=== PATIENT | male | born 1990 | race Caucasian/White ===

== ENCOUNTER 2017-02-15 19:59 | Emergency (ER) | payer SELFPAY ==
[~2017-02-15] VITALS: Ht 177.8 cm; Wt 70.2 kg
[2017-02-15 20:15] VITALS: Ht 177.8 cm; Wt 70.2 kg
--- NOTE | 2017-02-15 21:43 | EMERGENCY ROOM VISIT NOTE ---
History Report prepared by Chelita: Skylar Palmer Under the Supervision of: Dr. Randy Roberts D.O. First contact with patient: 21:34 Chief Complaint: FEVER Stated Complaint: LUMP UNDER L JAW,CHEST CONGESTION,FEVER,CHESTTIGHT History of Present Illness The patient is a 26 year old male who presents to the Emergency Room with complaints of worsening illness starting 5 days ago. The patient has been sick with cough, cold, and chest congestion. He is coughing up a brown/yellow mucous. The patient also complains of a lump under his left jaw. He has a history of bronchitis and pneumonia. He is a smoker. He denies any previous surgeries. Source of History: patient Onset: 5 days ago Position: other (global) Quality: other (illness) Timing: worsening Associated Symptoms: + cough Note: Pt reports cold, chest congestion, lump under left jaw. Review of Systems See HPI for pertinent positives and negatives. A total of ten systems were reviewed and were otherwise negative. Past Medical & Surgical Medical Problems: (1) Bronchitis (2) Dental abscess (3) Pneumonia Family History FH: peptic ulcer disease Social History Smoking Status: Current Every Day Smoker Alcohol Use: occasionally Drug Use: none Marital Status: in relationship Occupation Status: employed Current/Historical Medications Scheduled PRN Phenylephrine-Chlorpheniramine ([place] Plus Cold &), 2 CAP PO Q6H PRN for CONGESTION Allergies Coded Allergies: Cefaclor (Verified Allergy, Mild, hives, 02/15/17) Amoxicillin (Verified Allergy, Unknown, hives, 02/15/17) Physical Exam Vital Signs Date Time Temp Pulse Resp B/P (MAP) Pulse Ox O2 Delivery O2 Flow Rate FiO2 02/15/17 22:14 72 02/15/17 22:04 100 Room Air 02/15/17 21:28 37.0 89 18 112/77 98 Room Air 02/15/17 20:15 36.8 89 18 105/72 98 Room Air Physical Exam GENERAL: Awake, alert, well-appearing, in no distress HENT: Normocephalic, atraumatic. Poor dentition. No evidence of abscess. Submandibular lymph node. EYES: Normal conjunctiva. Sclera non-icteric. NECK: Supple. No nuchal rigidity. FROM. No JVD. RESPIRATORY: Rhonchi. CARDIAC: Regular rate, normal rhythm. Extremities warm and well perfused. Pulses equal. ABDOMEN: Soft, non-distended. No tenderness to palpation. No rebound or guarding. No masses. RECTAL: Deferred. MUSCULOSKELETAL: Chest examination reveals no tenderness. The back is symmetrical on inspection without obvious abnormality. There is no CVA tenderness to palpation. No joint edema. LOWER EXTREMITIES: Calves are equal size bilaterally and non-tender. No edema. No discoloration. NEURO: Normal sensorium. No sensory or motor deficits noted. SKIN: No rash or jaundice noted. Medical Decision & Procedures ER Provider Diagnostic Interpretation: X ray results as stated below per my interpretation and radiologist interpretation. CHEST ONE VIEW PORTABLE CLINICAL HISTORY: cough ] ON THE LEFT JAW. FEVER. COMPARISON STUDY: 03/10/2016 FINDINGS: The cardiac and mediastinal contours are normal. There is no evidence of focal pulmonary consolidation. There is no evidence of failure. No pleural effusions are visualized.[ IMPRESSION: No active disease in the chest. Electronically signed by: Natanael Hope M.D. 02/15/2017 9:51 PM Dictated Date/Time: 02/15/2017 9:51 PM Laboratory Results 02/15/17 21:52 Red Blood Count 4.45, Mean Corpuscular Volume 91.7, Mean Corpuscular Hemoglobin 31.9, Mean Corpuscular Hemoglobin Concent 34.8, Mean Platelet Volume 9.6, Neutrophils (%) (Auto) 51.4, Lymphocytes (%) (Auto) 35.4, Monocytes (%) (Auto) 8.0, Eosinophils (%) (Auto) 4.2, Basophils (%) (Auto) 0.9, Neutrophils # (Auto) 3.55, Lymphocytes # (Auto) 2.44, Monocytes # (Auto) 0.55, Eosinophils # (Auto) 0.29, Basophils # (Auto) 0.06 02/15/17 21:52 Test 02/15/17 21:35 02/15/17 21:52 Influenza Type A Antigen Neg for Influ A (NEG) Influenza Type B Antigen Neg for Influ B (NEG) White Blood Count 6.90 K/uL (4.8-10.8) Red Blood Count 4.45 M/uL (4.7-6.1) Hemoglobin 14.2 g/dL (14.0-18.0) Hematocrit 40.8 % (42-52) Mean Corpuscular Volume 91.7 fL (80-100) Mean Corpuscular Hemoglobin 31.9 pg (25-34) Mean Corpuscular Hemoglobin Concent 34.8 g/dl (32-36) Platelet Count 313 K/uL (130-400) Mean Platelet Volume 9.6 fL (7.4-10.4) Neutrophils (%) (Auto) 51.4 % Lymphocytes (%) (Auto) 35.4 % Monocytes (%) (Auto) 8.0 % Eosinophils (%) (Auto) 4.2 % Basophils (%) (Auto) 0.9 % Neutrophils # (Auto) 3.55 K/uL (1.4-6.5) Lymphocytes # (Auto) 2.44 K/uL (1.2-3.4) Monocytes # (Auto) 0.55 K/uL (0.11-0.59) Eosinophils # (Auto) 0.29 K/uL (0-0.5) Basophils # (Auto) 0.06 K/uL (0-0.2) RDW Standard Deviation 39.7 fL (36.4-46.3) RDW Coefficient of Variation 11.8 % (11.5-14.5) Immature Granulocyte % (Auto) 0.1 % Immature Granulocyte # (Auto) 0.01 K/uL (0.00-0.02) Anion Gap 5.0 mmol/L (3-11) Est Creatinine Clear Calc Drug Dose 81.0 ml/min Estimated GFR () 82.1 Estimated GFR (Non- 70.8 BUN/Creatinine Ratio 9.4 (10-20) Calcium Level 9.2 mg/dl (8.5-10.1) Total Bilirubin 0.6 mg/dl (0.2-1) Aspartate Amino Transf (AST/SGOT) 15 U/L (15-37) Alanine Aminotransferase (ALT/SGPT) 21 U/L (12-78) Alkaline Phosphatase 75 U/L (45-117) Total Protein 7.7 gm/dl (6.4-8.2) Albumin 3.6 gm/dl (3.4-5.0) Globulin 4.1 gm/dl (2.5-4.0) Albumin/Globulin Ratio 0.9 (0.9-2) Laboratory results reviewed by me ECG Indication: SOB/dyspnea Rate (beats per minute): 69 Findings: no acute ischemic change, other (normal intervals, normal axis) ED Course 2135: The patient was evaluated in room A3. A complete history and physical exam was performed. 2247: I reevaluated the patient. Discussed results and discharge instructions: he verbalized understanding and agreement. The patient is ready for discharge. Medical Decision Differential diagnoses include but are not limited to; URI, bronchitis, pneumonia, dental infection. Patient evaluated for pneumonia and bronchitis. Patient's chest x-rays negative. Patient's negative for influenza. Patient may have a dental caries causing lymphadenopathy and anterior neck. Patient will be treated with antibiotics as he is allergic to penicillin we will use Zithromax. I discussed evaluation with the patient at bedside at 10:50 PM Medication Reconcilliation Current Medication List: was personally reviewed by me Blood Pressure Screening Patient's blood pressure: Normal blood pressure Blood pressure disposition: Did not require urgent referral Impression Primary Impression: Bronchitis Additional Impression: Dental caries Scribe Attestation The scribe's documentation has been prepared under my direction and personally reviewed by me in its entirety. I confirm that the note above accurately reflects all work, treatment, procedures, and medical decision making performed by me. Departure Information Dispostion Home / Self-Care Prescriptions Azithromycin (ZITHROMAX Z-DEB) 250 Mg Tab 1 UNITS PO UD, #1 PKT Prov: Randy Roberts, DO 02/15/17 Referrals Abner Mckenzie M.D. (PCP) Patient Instructions Bronchitis Acute, Decay Tooth, My [facility] Problem Qualifiers
--- NOTE | 2017-02-15 21:52 | DIAGNOSTIC IMAGING REPORT ---
CHEST ONE VIEW PORTABLE CLINICAL HISTORY: cough ] ON THE LEFT JAW. FEVER. COMPARISON STUDY: 03/10/2016 FINDINGS: The cardiac and mediastinal contours are normal. There is no evidence of focal pulmonary consolidation. There is no evidence of failure. No pleural effusions are visualized.[ IMPRESSION: No active disease in the chest. Electronically signed by: Natanael Hope M.D. 02/15/2017 9:51 PM Dictated Date/Time: 02/15/2017 9:51 PM
[2017-02-15 22:04] VITALS: O2SAT 100
[2017-02-15 22:21] LABS: BASO % 0.9 %; BASO ABS # 0.06 K/uL (0-0.2); COMPLETE YES; EOS % 4.2 %; HEMATOCRIT 40.8 % (42-52); IG% 0.1 %; LYMPH % 35.4 %; LYMPH ABS # 2.44 K/uL (1.2-3.4); MEAN CELL VOLUME 91.7 fL (80-100); MEAN CORPUSCULAR HEMOGLOBIN 31.9 pg (25-34); MEAN CORPUSCULAR HGB CONC 34.8 g/dl (32-36); MEAN PLATELET VOLUME 9.6 fL (7.4-10.4); NEUT % 51.4 %; PLATELET COUNT 313 K/uL (130-400); RED BLOOD COUNT 4.45 M/uL (4.7-6.1)
[2017-02-15] MEDS ORDERED: PHEN1CAP5 PO (22:31)
[2017-02-15 22:38] LABS: BUN/CREATININE RATIO 9.4 (10-20); CALCIUM 9.2 mg/dl (8.5-10.1); CREATININE 1.36 mg/dl (0.60-1.40); POTASSIUM 3.8 mmol/L (3.5-5.1)
[2017-02-15 22:41] LABS: ALB/GLOB RATIO 0.9 (0.9-2)
[2017-02-15] MEDS ORDERED: AZITTAB PO (22:51)
[2017-02-15 23:03] VITALS: BP 113/65; PULSE 66; TEMP 37.2; O2SAT 98
== END 2017-02-15 23:03 | disposition home or self-care (01) ==
LOC: C.EDB 20:01 → C.EDA 23:03
DX: J40 Bronchitis, not specified as acute or chronic (principal); K02.9 Dental caries, unspecified; F17.200 Nicotine dependence, unspecified, uncomplicated; Z88.1 Allergy status to other antibiotic agents; Z88.8 Allergy status to other drugs, medicaments and biological substances; Z83.79 Family history of other diseases of the digestive system